=== PATIENT | male | born 1960 | race Caucasian/White ===

== ENCOUNTER → 2023-11-05 | Outpatient (CLI) | payer BC ==
[2023-11-05 15:44] LABS: Basophils # (A) 0.07 X 10*3/uL (0.00-0.10); Basophils % (A) 0.9 %; Eosinophils % (A) 3.9 %; HCT 50.4 % (39.6-50.0); HGB 16.7 g/dL (13.0-17.0); Lymphocytes # (A) 0.89 X 10*3/uL (0.90-5.00); Lymphocytes % (A) 11.6 %; MCH 31.4 pg (27.0-32.0); MCHC 33.1 g/dL (32.0-37.0); MCV 94.7 FL (80.0-97.0); Mean Platelet Volume 11.1 FL (9.5-12.2); Monocytes # (A) 1.12 X 10*3/uL (0.20-1.00); Monocytes % (A) 14.6 %; NRBC Per 100 WBC 0 X 10*3/uL (0.00-0.01); Neutrophils # (A) 5.26 X 10*3/uL (1.80-7.70); Neutrophils % (A) 68.5 %; Platelet Count 274 X 10*3/uL (140-440); RBC 5.32 X 10*6/uL (4.40-5.60); RDW 13.7 % (11.5-14.5); WBC 7.68 X 10*3/uL (4.50-10.00)
[2023-11-05 16:11] LABS: BUN/Creat Ratio 21.27 Ratio (12.00-20.00); Blood Urea Nitrogen 23.4 mg/dL (9.0-27.0); Calcium 10.2 mg/dL (8.7-10.3); Carbon Dioxide 23.9 mmol/L (21.6-31.8); Chloride 99 mmol/L (96-109); Glucose 122 mg/dL (70-110); Potassium 4.5 mmol/L (3.5-5.5); Sodium 137 mmol/L (135-145)
[2023-11-05 16:35] LABS: Appearance,Urine Clear (Clear); Bilirubin,Urine Negative (Negative); Blood,Urine Trace (Negative); Color,Urine Yellow (Yellow); Ketones,Urine Negative (Negative); Nitrite,Urine Negative (Negative); PH, Urine 5.5; Specific Gravity,Urine 1.009 (1.001-1.030); Urobilinogen,Urine 0.2 E.U./DL
[2023-11-05 16:51] LABS: Bacteria,Urine None Seen (None Seen)
== END | disposition home or self-care (01) ==
LOC: LABPAT 09:37
PROVIDERS: ATTEND Urology
DX: Z01.812 Encounter for preprocedural laboratory examination (principal); N40.1 Benign prostatic hyperplasia with lower urinary tract symptoms; R00.0 Tachycardia, unspecified
CPT/HCPCS: 36415; 80048; 81001; 85025; 86850; 86900; 86901; 87086; 93005

== ENCOUNTER 2023-11-13 08:19 | Day surgery (SDC) | payer BC ==
--- NOTE | 2023-11-13 07:15 | P.HPIHPCON ---
History of Present Illness H&P Date: 11/13/23 Chief Complaint: BPH This is a 63-year-old male with history of both obstructive and overactive bladder symptoms underwent a cystoscopy which showed significant prostate enlargement on CT prostate measured greater than 100 g. He has failed medical therapy. Discussed with him given his symptoms the option of a HoLEP versus a robotic simple prostatectomy. Risk and benefit of each approach were discussed in detail. He agreed to proceed with a robotic simple prostatectomy. Aware of the risk which includes but not limited to bleeding, infection, urinary incontinence, erectile dysfunction. Discussed he will develop retrograde ejaculation secondary to the procedure. Risk of injury to nearby organs was also discussed. He understood all the risk and agreed to proceed Consent for Procedure: I have explained the operation/procedure to the patient, including the risks, benefits, side effects, alternative therapies (including not receiving the proposed treatment or service), the likelihood of the patient achieving his/her goals, and potential recuperation problems for the procedure/sedation/analgesia, as well as any blood products, if indicated. I also explained to the patient the risks, benefits and side effects of the alternatives, as well as the risks related to not receiving the proposed procedure, care, treatment, or services. Past Medical History Past Medical History: Hypertension, Prostate Disorder Additional Past Medical History / Comment(s): elevated liver enzymes in past, urinary frequency,& leakage History of Any Multi-Drug Resistant Organisms: None Reported Past Surgical History: No Surgical Hx Reported Past Anesthesia/Blood Transfusion Reactions: No Reported Reaction Smoking Status: Never smoker - Past Family History Father Family Medical History: Cancer Additional Family Medical History / Comment(s): prostate Medications and Allergies Home Medications Medication Instructions Recorded Confirmed Type Losartan/Hydrochlorothiazide 1 tab PO DAILY 11/05/23 11/05/23 History [Losartan-Hctz 100-25 mg Tab] Tamsulosin HCl [Flomax] 1 tab PO DAILY 11/05/23 11/05/23 History amLODIPine BESYLATE [Amlodipine 10 mg PO DAILY 11/05/23 11/05/23 History Besylate] Allergies Allergy/AdvReac Type Severity Reaction Status Date / Time bacitracin AdvReac Unknown Verified 11/05/23 12:17 [From Neosporin ([id number])] neomycin AdvReac Unknown Verified 11/05/23 12:17 [From Neosporin ([id number])] polymyxin B AdvReac Unknown Verified 11/05/23 12:17 [From Neosporin ([id number])] Surgical - Exam - General no distress, no pain - Eyes normal ocular movement, no pale - ENT normal nares, normal mucosa - Respiratory normal expansion, normal respiratory effort - Abdomen Abdomen: soft, non tender Assessment and Plan Assessment: OR for robotic simple prostatectomy
[~2023-11-13 08:19] MED LIST: HYDROmorphone 0.5 MG/0.5 ML SYRINGE IVP PRN; LIDOCAINE 1% (10MG/ML) FOR IV START INTRADERMA PRN
[2023-11-13] MEDS: LACTATED RINGERS 1,000 ML IV SCH (08:37)
[2023-11-13] MEDS: DEXAMETHASONE SOD PHOSPHATE 4 MG/ML 1 ML VIAL IV ONE (09:00)
[2023-11-13] MEDS: ONDANSETRON 4 MG/2 ML VIAL IVP ONE (09:00)
[2023-11-13] MEDS: MIDAZOLAM 2 MG/2 ML VIAL IVP ONE (09:09)
--- NOTE | 2023-11-13 09:35 | P.ANPRN ---
Procedure Note - Anesthesia - Nerve Block Performed Bilateral Erector Spinae Single Time Out Performed: Yes ([id number]) Date of Procedure: 11/13/23 Procedure Start Time: 09:10 Procedure Stop Time: :18 Location of Patient: PreOp Indication: Acute Post-Operative Pain, Requested by Surgeon Sedation Type: Sedate with meaningful contact maintained Preparation: Sterile Prep, Sterile Dressing Position: Prone Catheter: None Needle Types: Pajunk Needle Gauge: 21 Ultrasound used to visualize needle placement: Yes Ultrasound used to observe medication spread: Yes Injectate: 0.5% Ropivacaine (see comment for volume) Blood Aspirated: No Pain Paresthesia on Injection Noted: No Resistance on Injection: Normal Image Stored and Saved: Yes Events: Uneventful and Well Tolerated (20 mL of block solution injected on each side. The block solution containing 20 ML of 0.5% ropivacaine mixed with 20 ML of preservative-free normal saline)
[2023-11-13] MEDS ORDERED: SUCCINYLCHOLINE CHLORIDE 200 MG/10 ML VIAL IV ONE (09:40)
[2023-11-13] MEDS ORDERED: SODIUM CHLORIDE 0.9% (PF) 10 ML VIAL ONE (09:40)
[2023-11-13] MEDS ORDERED: ROPIVACAINE 5 MG/ML 30 ML VIAL ONE (09:40)
[2023-11-13] MEDS ORDERED: PHENYLEPHRINE 10 MG/ML VIAL ONE (09:40)
[2023-11-13] MEDS ORDERED: PROPOFOL 10 MG/ML 20 ML VIAL IV ONE (09:40)
[2023-11-13] MEDS ORDERED: ROCURONIUM 10 MG/ML (5 ML VIAL) IV ONE (09:40)
[2023-11-13] MEDS ORDERED: KETOROLAC 15 MG/ML 1 ML VIAL ONE (09:40)
[2023-11-13] MEDS ORDERED: HYDROmorphone (PF) 1 MG/ML ONE (09:40)
[2023-11-13] MEDS ORDERED: MIDAZOLAM 2 MG/2 ML VIAL ONE (09:40)
[2023-11-13] MEDS ORDERED: GLYCOPYRROLATE 0.2 MG/ML 2 ML VIAL ONE (09:40)
[2023-11-13] MEDS ORDERED: LIDOCAINE 1% INJ 10MG/ML (20 ML MDV) ONE (09:40)
[2023-11-13] MEDS ORDERED: NEOSTIGMINE 1 MG/ML 10 ML VIAL ONE (09:40)
[2023-11-13] MEDS ORDERED: fentaNYL (PF) 50 MCG/ML 2 ML AMP ONE (09:40)
[2023-11-13] MEDS ORDERED: HYDROcodone/APAP 5-325MG 1 EACH TAB PO PRN (09:44)
[2023-11-13] MEDS: BUPIVACAINE (PF) 0.25% 30 ML VIAL SQ ONE (09:45)
--- NOTE | 2023-11-13 13:34 | P.OP ---
Date of Procedure: 11/13/23 Preoperative Diagnosis: BPH Postoperative Diagnosis: same Procedure(s) Performed: Robotic simple prostatectomy Implants: none Anesthesia: RENALDOA Surgeon: Frank Byrnes Estimated Blood Loss (ml): 150 Pathology: other (Prostate adenoma) Condition: stable Disposition: PACU Indications for Procedure: This is a 63-year-old male with history of both obstructive and overactive bladder symptoms underwent a cystoscopy which showed significant prostate enlargement on CT prostate measured greater than 100 g. He has failed medical therapy. Discussed with him given his symptoms the option of a HoLEP versus a robotic simple prostatectomy. Risk and benefit of each approach were discussed in detail. He agreed to proceed with a robotic simple prostatectomy. Aware of the risk which includes but not limited to bleeding, infection, urinary incontinence, erectile dysfunction. Discussed he will develop retrograde ejaculation secondary to the procedure. Risk of injury to nearby organs was also discussed. He understood all the risk and agreed to proceed Description of Procedure: After preoperative antibiotics were started, the patient was taken to the operating room. Anesthesia was induced and the patient was placed in a supine position with adequate padding of the pressure points, shoulders, back, legs and arms. He was then prepped and draped in the standard fashion. A critical pause was performed using two patient identifiers. A 16F berry catheter was placed to gravity drainage. A pneumoperitoneum was obtained using a Veress needle, after pneumoperitoneum was obtained a 8 mm camera port was placed. Under direct vision a 8mm robotic ports was placed lateral to each rectus slightly below the camera port. The left iliac fossa 8mm port was placed. The right assistant professor of marine biology right iliac fossa 12mm port and right paramedian 5mm portwere placed. After the patient was placed in the trendelenberg position, the robot was then docked to the 8mm robotic ports and then each robotic arm and tower was checked in relation to the patient's legs and hands to avoid inadvertent compression. The peritoneal cavity was inspected. Adhesions were taken down along the left lower quadrant An inverted U-shaped incision began laterally to the left medial umbilical ligament and extended high across the midline to the right umbilical ligament. The limbs of the "U" extended to the level of the vasa on both sides. We next developed the preperitoneal space and the space of Retzius. Cautery was used to dissected the bladder away from the prostate, the incision was made in close proximity to the prostate, and incision was extended laterally and at this point the plane between the adenoma and the surgical capsule is identified. Both ureteral orifices were identified and neither was injured during the dissection . Of note patient had a significant median lobe enlargement with intravesical extension.the adenoma was dissected off of the capsule by combination of blunt dissection and minimum cautery. dissection was initially started along the anterior surface and posterior surface of adenoma, and this was carried laterally. The dissection was carried to the apex, at this point the urethral-prostatic junction was visualized and the prostate was transected at the junction. Prostate adenoma was placed in an endocatch bag . A 9and 9 inch 3-0 V-Lock suture was used to anastomose the urethra and bladder, starting at the 6:00 posterior position. Mucosa was secured in every stitch, to ensure a mucosa to mucosa anastomosis. The stitch was regularly cinched and the anastomosis tightened. . The 20 Fr Berry catheter was advanced, the bladder filled, and the anastomosis was tested. Anastomsis was watertight at 100 mL. balloon was inflated to 10 mL. The capsule was closed to the bladder using 3 oh V-Loc in running fashion. The robot was undocked. specimen was extracted from the supraumbilical incision. The periumbilical fascia was closed with 1-0-PDS suture in figure of 8 fashion. All ports were closed with a subcuticular 4-0 monocryl and Dermabond. Sponge, instrument, and needle counts were correct at the end of the case x2. The patient tolerated the surgery well and without complication. He awoke without difficulty and was taken to the recovery room in stable condition
[2023-11-13] MEDS: droPERidol 5 MG/2 ML VIAL IVP ONE (15:34)
[2023-11-13] MEDS: KETOROLAC 15 MG/ML 1 ML VIAL IVP SCH (15:35)
[2023-11-13] MEDS: HEPARIN SODIUM,PORCINE 5,000 UNIT/ML 1 ML VIAL SQ SCH (15:43)
[2023-11-13] MEDS: ONDANSETRON 4 MG/2 ML VIAL IVP PRN (16:59)
[2023-11-13] MEDS: D5-0.45% NACL WITH KCL 20MEQ/L 1,000 ML IV SCH (18:19)
[2023-11-13] MEDS: AMOXIC-POT CLAV 875-125MG 1 EACH TAB PO SCH (20:19)
--- NOTE | 2023-11-14 07:35 | P.DS ---
Providers Attending physician: Frank Byrnes MD Primary care physician: [facility] Course: Patient was admitted to the hospital 11/13/23 for a robotic suprapubic prostatectomy. He underwent this without difficulty. He did well overnight. His urine is light pink this morning. His pain is minimal. He is tolerated food. His urine output is good. His vital signs are stable. He wishes to go home. He'll be discharged home later today on a regular diet limited activity. Tylenol Motrin for pain. He'll follow-up with on 11/24/23. His condition is good. Patient Condition at Discharge: Good Plan - Discharge Summary Discharge Rx Participant: No New Discharge Prescriptions: No Action amLODIPine BESYLATE [Amlodipine Besylate] 10 mg PO DAILY Tamsulosin HCl [Flomax] 1 tab PO DAILY Losartan/Hydrochlorothiazide [Losartan-Hctz 100-25 mg Tab] 1 tab PO DAILY Amoxicillin/Potassium Clav [Amox-Clav 875-125 mg Tablet] 1 tab PO BID Discharge Medication List Losartan/Hydrochlorothiazide [Losartan-Hctz 100-25 mg Tab] 1 tab PO DAILY 11/05/23 [History] Tamsulosin HCl [Flomax] 1 tab PO DAILY 11/05/23 [History] amLODIPine BESYLATE [Amlodipine Besylate] 10 mg PO DAILY 11/05/23 [History] Amoxicillin/Potassium Clav [Amox-Clav 875-125 mg Tablet] 1 tab PO BID 11/13/23 [History] Follow up Appointment(s)/Referral(s): Frank Byrnes MD [STAFF PHYSICIAN] - 11/24/23 Discharge Disposition: HOME SELF-CARE
[2023-11-14 08:11] VITALS: BP 157/82; PULSE 68; RESP 18; TEMP 98.2
[2023-11-14] MEDS: amLODIPine 10 MG TAB PO SCH (08:33)
[2023-11-14] MEDS: LOSARTAN-HCTZ 50-12.5 MG 1 EACH TAB PO SCH (08:34)
== END 2023-11-14 11:55 | disposition home or self-care (01) ==
LOC: OR 08:19 → 5NMEDONC 13:47 → OR 11-14 11:55
PROVIDERS: ATTEND Urology
DX: N40.1 Benign prostatic hyperplasia with lower urinary tract symptoms (principal); G89.18 Other acute postprocedural pain; I10 Essential (primary) hypertension; Z80.42 Family history of malignant neoplasm of prostate; Z79.899 Other long term (current) drug therapy
CPT/HCPCS: 55867; 64999; 88305; 88307; J2250; J0330; J1644 ×2; J1100; J2710; J0690; J2405; J2001; J3010; J1170; J2795; J1885 ×2; J2704; J2371; J0665